=== PATIENT | female | born 1975 | race Hispanic/Latino ===

== ENCOUNTER 2016-04-29 23:24 | Emergency (ER) | payer MEDICARE, MEDICAID ==
[~2016-04-29] VITALS: Ht 160 cm; Wt 90.9 kg
[2016-04-29 23:27] VITALS: BP 130/90; PULSE 87; RESP 18; O2SAT 97
--- NOTE | 2016-04-29 23:49 | ED.REPORT ---
HPI-Chest Pain 40 and Over Date of Service Apr 29, 2016 ED Provider: Aayush Mccracken DO A 41 year old female with a history of smoking and [place] x1 presents to the ED complaining of chest pain onset one hour ago. The pain began when the pt was not doing anything particularly exertional, and radiates into her neck. The pain seems to be exacerbated by movement of her neck. The pt has experienced similar symptoms before while living in [place], and was diagnosed with high cholesterol. Nursing Notes Stated Complaint: CHEST PAIN Chief Complaint: Chest Pain Nursing Notes Reviewed: Yes Allergies: Coded Allergies: No Known Allergies (Verified Allergy, Unknown, 04/30/16) General Time Seen by MD: 23:49 Chief Complaint Chest pain Hx Obtained From: Patient, Spouse Arrived By: Walk-in Sudden in Onset?: Yes Onset Occurred: 1 - 4 hours ago Symptom Duration: Since onset Recent Healthcare: No recent hospitalization, Recent doctor visit Similar Sx Previous: Yes Risk Factors )( CAD Risk Stratification SmokingNo Amphetamine, No Cocaine, No Diabetes mellitus, No Family history, No Hyperlipidemia, No Hypertension, No Known CAD Risk factors reviewed )( TAD Risk Stratification Risk factors reviewed, No risk factors )( PE Risk Stratification No Coagulation Disorder, No Estrogen Medicine / BCP's, No Saige, No Immobilization, No Malignancy, No , No , No Previous DVT, No Previous PE, No Surgery Last 60 Days, No Trauma No risk factors Past Medical History Past Medical History high cholesterol Past Surgical History none reported Smoking History Current Every Day Smoker Social History moved from [place] Other Social History: Good social support, Ambulatory Status Independent Review of Systems Constitutional: Denies: Fever Respiratory: Reports: Shortness of breath, Denies: Non-productive cough Cardiovascular: Reports: Chest pain GI: Denies: Abdominal pain Musculoskeletal: Reports: Neck pain, Denies: Back pain Skin: Denies Rash Complete sys rev & neg: except as marked. Physical Exam Initial Vital Signs Vital Signs (First) Date Time Temp Pulse Resp B/P Pulse Ox O2 Delivery O2 Flow Rate FiO2 04/29/16 23:27 36.4 87 18 130/90 97 Room Air Initial VS: Reviewed General/Constitutional: Awake, Alert Respiratory / Chest: Atraumatic, Breath sounds NL, Breath sounds = bilat, No respiratory distress chest wall tenderness Cardiovascular: Heart rate NL, Regular rhythm, Heart sounds NL Abdomen: Atraumatic, Soft, Non-tender Neck: Atraumatic, Supple, Full range of motion some pain with range of motion of neck Back: Atraumatic, Full range of motion Lower Extremity / Pelvis / MS: Atraumatic, Full range of motion Skin: Atraumatic, Color NL, No rash, Warm, Dry Neurologic: Oriented X3, Speech NL, No motor deficits, No sensory deficits Psychiatric: Affect NL, Mood NL Head / Eyes: Atraumatic, Normocephalic, PERRL, EOMI ENT: Atraumatic, Airway patent, Mucous membranes moist Upper Extremity / MS: Atraumatic, Full range of motion Interpretation & Diagnostics Lab Results Interpretation Result Diagram: 04/29/16 2359 04/29/16 2359 Test 04/29/16 23:59 04/30/16 02:54 White Blood Count 9.0th/mm3 (3.8-10.1) Red Blood Count 4.66mil/mm3 (3.90-5.20) Hemoglobin 13.9g/dL (12.0-15.6) Hematocrit 41.8% (35.0-46.0) Mean Corpuscular Volume 89.7fL (81-100) Mean Corpuscular Hemoglobin 29.8pg (27.0-35.0) Mean Corpuscular Hemoglobin Concent 33.3% (32.0-37.0) Red Cell Distribution Width 14.1% (12.3-15.4) Platelet Count 250bil/L (150-400) Neutrophils (%) (Auto) 45.1% (40-74) Lymphocytes (%) (Auto) 43.0% (14-46) Monocytes (%) (Auto) 7.7% (4-12) Eosinophils (%) (Auto) 3.2% (0-5) Basophils (%) (Auto) 0.3% (0-3) D-Dimer < 0.5mg/L (<0.50) Sodium Level 138mEq/L (134-144) Potassium Level 4.0mEq/L (3.5-5.2) Chloride Level 99mEq/L (97-108) Carbon Dioxide Level 27mmol/L (18-29) Blood Urea Nitrogen 16mg/dL (6-24) Creatinine 0.62mg/dL (0.57-1.00) Estimat Glomerular Filtration Rate 151mL/min (>59) Glucose Level 115mg/dL (60-99) Calcium Level 9.2mg/dL (8.5-10.1) Magnesium Level 2.0mg/dL (1.6-2.6) Total Bilirubin 0.2mg/dL (0.0-1.2) Aspartate Amino Transf (AST/SGOT) 15U/L (0-50) Alanine Aminotransferase (ALT/SGPT) 18U/L (0-32) Alkaline Phosphatase 75U/L (25-150) Total Protein 7.4g/dL (6.4-8.4) Albumin 4.3g/dL (3.4-5.0) Troponin T 0.010ug/L (0.0-0.011) Pulse Oximetry Interpretation Pulse Oximetry Interpretation: 97% on room air Pulse Oximetry: Pulse Ox normal ECG Interpretation ECG Interpretation: normal sinus rhythm with a rate of [address] segment changes no pathologic Q waves Time: 23:26 Interpreted by: ED physician X-Ray Chest Interpretation Chest Xray Interpretation: no acute findings Interpretation / Wet Read by: Wet read ED physician Re-Eval/Medical Decision Med Decision/Clinical Course 41-year-old female presents with neck and chest pain. The pain seems to emanate from her upper chest towards her neck. At times or when she flexes and extends at the neck this makes the chest pain worse. Palpation of her neck and turning of her neck causes pain in her neck. Palpation of her chest causes pain in her chest. She has symmetric blood pressure both arms. Normal cardiopulmonary examination. Respiratory exam was very benign. Chest x-ray did not show any acute disease. EKG showed sinus rhythm with normal ST segments. No signs of ischemia. First troponin was negative. D-dimer was negative. No evidence of dissection or pneumothorax on the chest x-ray. Her mediastinum was not widened. IV Toradol was given with complete relief of pain. Assessment: Atypical chest and neck pain. Plan: She will get a four-hour troponin. If this is normal then she meets all low risk criteria for this hospital's rapid rule out protocol for the emergency department. I do not feel that she is having an acute coronary syndrome, dissection or pulmonary emboli. I think she has musculoskeletal pain. It is reassuring that with any lifting and palpation of her neck she has reproducible symptoms. If the second troponin is normal she can be safely discharged. We will have close outpatient follow-up either way. I discussed this with her and her are very pleased with her care and disposition. Time of Eval: 02:38 Patient Status: Condition improved Re-Evaluation/Progress Note: Pt rechecked, whose pain has resolved with Toradol. The plan for discharge pending reassuring labs is discussed. The pt understands and agrees with the plan. All questions are addressed at this time. Counseled Regarding: Diagnosis, Lab results, Need for follow-up, When/why to return to ED Discharge & Departure Primary Impression: Chest pain Chest pain type: other chest pain Qualified Code: R07.89 - Other chest pain Disposition: Home Discharge Condition All VS Reviewed: Yes Condition: Stable Patient Instructions: Chest Pain (ED) Additional Instructions: The cause of the pain is uncertain. Your chest x-ray looked normal to me. Your EKG did not show evidence of a heart attack or acute ischemia. 2 troponins were negative. Your blood clot blood test was normal. Anti- inflammatories seem to help the pain. I recommend that you take Motrin as directed for pain. I would like you to call your doctor first thing in the morning for further evaluation. You may need to have a stress test if the symptoms return. If he do have any further chest pain then come back to the emergency department. Referrals: Jennifer Seth DO (PCP) [facility] [place] Attestation Portions of this note were transcribed by Charlie Rudolph. I, Dr. Mccracken personally performed the history, physical exam and medical decision-making; I reviewed and confirmed the accuracy of the information in the transcribed note. Signed by: Harrison Edouard, 04/30/2016 and 0248. copies to: Jennifer Seth DO; [facility] Aayush Mccracken DO Apr 29, 2016 23:49 CHARLIE RUDOLPH Apr 29, 2016 23:59
[2016-04-30 00:14] LABS: BASOPHILS % (AUTO) 0.3 % (0-3); EOSINOPHILS % (AUTO) 3.2 % (0-5); MONOCYTES % (AUTO) 7.7 % (4-12); Mean Corpuscular Hemoglobin 29.8 pg (27.0-35.0); Mean Corpuscular Volume 89.7 fL (81-100); NEUTROPHILS % (AUTO) 45.1 % (40-74); Platelet Count 250 bil/L (150-400)
[2016-04-30 00:20] VITALS: BP 116/74; PULSE 80; RESP 17; O2SAT 95
[2016-04-30 00:36] LABS: TROPONIN T 0.01 ug/L (0.0-0.011)
[2016-04-30 01:39] VITALS: BP 104/65; PULSE 79; RESP 20; O2SAT 95
[2016-04-30 04:05] VITALS: BP 115/69; PULSE 85; RESP 15; O2SAT 94
[2016-04-30 04:06] VITALS: BP 115/69; PULSE 85; RESP 15; O2SAT 94
--- NOTE | 2016-05-05 15:25 | DRSVH ---
CORRECTED PATIENT NAME AND MRN ON 05/05/16 PROCEDURE: X-RAY CHEST ONE VIEW, PORTABLE ([id number]) INDICATIONS: chest pain TECHNIQUE: One view of the chest was acquired. COMPARISON: None. FINDINGS: Surgical changes and devices: None. Lungs and pleura: No pleural effusions or pneumothorax. Lungs are clear, and interstitium is promin ent. Mediastinum: Mediastinal contours appear normal. Heart size is normal. Bones and chest wall: No suspicious bony lesions. Overlying soft tissues appear unremarkable. IMPRESSION: Prominent interstitium and mild edema or atypical pneumonia cannot be excluded. Recommen d clinical correlation. Dictated by: Denilson Bernardo RR Interpreted: Angus Christopher MD on 04/30/2016 at 10:04 Transcribed by: BETH on 04/30/2016 at 10:05 Approved by: Angus Christopher M.D. on 04/30/2016 at 16:21
== END 2016-04-30 04:11 | disposition home or self-care (01) ==
LOC: EDBD → EDUNIT# 23:24 → SED 23:24
DX: R07.89 Other chest pain (principal); I25.2 Old myocardial infarction; F17.200 Nicotine dependence, unspecified, uncomplicated

== ENCOUNTER 2016-04-30 16:35 | Emergency (ER) | payer MEDICARE, MEDICAID ==
[~2016-04-30] VITALS: Ht 160 cm; Wt 86.4 kg
[2016-04-30 16:41] VITALS: BP 145/101; PULSE 93; RESP 16; O2SAT 93
--- NOTE | 2016-04-30 17:07 | ED.REPORT ---
HPI-General Illness Date of Service Apr 30, 2016 ED Provider: Efra Orr DO The patient is a 41 year old female with history of high cholesterol and tobacco use who presents to the emergency department complaining of a headache and left-sided facial numbness that she noticed at 0900. She also reports some tingling in her left arm and left-sided weakness. She was seen last night for chest pain and had a completely negative workup which included EKG, chest x-ray , and labs. She was discharged this morning around 0400. She denies nausea, vomiting, fever, chills, recurrent chest pain, cough, or shortness of breath. Records from previous visit show record of high cholesterol and an PA. She denies history of either of these. Nursing Notes Stated Complaint: L ARM TINGLING,L HEAD & NECK NUMBNESS Chief Complaint: Neuro Symptoms/ Deficits Nursing Notes Reviewed: Yes Allergies: Coded Allergies: No Known Allergies (Verified Allergy, Unknown, 04/30/16) General Time Seen by MD: 17:06 Chief Complaint Other (numbness and tingling) Hx Obtained From: Patient, Other family... Sudden in Onset?: Yes Onset Occurred: 5 - 8 hours ago Symptom Duration: Since onset Location: : Head Quality: Painful Severity: Current: Mild Severity: Maximum: Moderate Recent Healthcare: No recent hospitalization, Recent doctor visit Similar Sx Previous: No Past Medical History Past Medical History "Plugged coronary vein" Past Surgical History none reported Family History Noncontributory Smoking History Current Every Day Smoker Social History Recently moved from [place] Other Social History: Good social support, , Local resident Ambulatory Status Independent Review of Systems Full Review of Systems Constitutional: Denies: Chills, Fever Respiratory: Denies: Non-productive cough, Shortness of breath Cardiovascular: Denies: Chest pain GI: Denies: Nausea, Vomiting Neurologic: Reports: Headache, Numbness (left side of face) Complete sys rev & neg: except as marked. Physical Exam Vital Signs Initial VS: Reviewed Head / Eyes: Atraumatic, Normocephalic, PERRL ENT: Mucous membranes moist, Conjunctiva normal, No scleral icterus Respiratory: Breath sounds normal, Clear to auscultation, No respiratory distress Cardiovascular: Regular rate & rhythm, Heart sounds normal, Intact distal pulses Abdomen / GI: Soft, Non-tender, No guarding, No rebound, No distention Lymphatic: No lymphadenopathy Extremities: Vascular intact, Neuro intact, No swelling, No tenderness Skin: Warm, Dry, No cyanosis Psychiatric: Mood/affect normal, Behavior normal, Normal thought content General/Constitutional: Awake, Alert, No acute distress, Cooperative Neck: Atraumatic, Supple, No meningismus, Full range of motion, No adenopathy, No swelling, Non-tender, No midline vertebral tend No nuchal rigidity. Neurologic: Oriented X3, Speech NL, No motor deficits, CN II - XII intact, Cerebellar NL, Memory NL Decreased sensation to her neck bilaterally. Negative bilateral spurling test. 5/5 strength to bilateral lower extremities. 5/5 strength to bilateral upper extremities. Decreased sensation to her entire left side: lower extremity, upper extremity, and face. No facial droop. NIHS: 0. Interpretation & Diagnostics Lab Results Interpretation Test 04/30/16 18:14 White Blood Count 9.5th/mm3 (3.8-10.1) Red Blood Count 4.49mil/mm3 (3.90-5.20) Hemoglobin 13.4g/dL (12.0-15.6) Hematocrit 40.5% (35.0-46.0) Mean Corpuscular Volume 90.2fL (81-100) Mean Corpuscular Hemoglobin 29.8pg (27.0-35.0) Mean Corpuscular Hemoglobin Concent 33.1% (32.0-37.0) Red Cell Distribution Width 14.2% (12.3-15.4) Platelet Count 228bil/L (150-400) Neutrophils (%) (Auto) 58.6% (40-74) Lymphocytes (%) (Auto) 31.3% (14-46) Monocytes (%) (Auto) 5.9% (4-12) Eosinophils (%) (Auto) 3.5% (0-5) Basophils (%) (Auto) 0.3% (0-3) Prothrombin Time 10.1sec (8.1-12.5) Prothromb Time International Ratio 0.95ratio Sodium Level 141mEq/L (134-144) Potassium Level 4.2mEq/L (3.5-5.2) Chloride Level 103mEq/L (97-108) Carbon Dioxide Level 26mmol/L (18-29) Blood Urea Nitrogen 16mg/dL (6-24) Creatinine 0.58mg/dL (0.57-1.00) Estimat Glomerular Filtration Rate 163mL/min (>59) Glucose Level 96mg/dL (60-99) Calcium Level 9.2mg/dL (8.5-10.1) Total Bilirubin 0.2mg/dL (0.0-1.2) Aspartate Amino Transf (AST/SGOT) 17U/L (0-50) Alanine Aminotransferase (ALT/SGPT) 17U/L (0-32) Alkaline Phosphatase 66U/L (25-150) Troponin T < 0.010ug/L (0.0-0.011) Total Protein 6.7g/dL (6.4-8.4) Albumin 4.0g/dL (3.4-5.0) Hold Calvo Top Tube Received (Received) ECG Interpretation ECG Interpretation: Sinus rhythm with a rate of [address] changes Time: 06:14 CT Head Interpretation IMPRESSION: No abnormalities found intracranially. No evidence for mass, edema, neural, or old stroke is seen. Dictated by: Jake Garza M.D. on 04/30/2016 at 18:31 Study: Head CT no contrast Interpretation / Wet Read by: Interpret - Radiologist Re-Eval/Medical Decision Med Decision/Clinical Course 41-year-old female at low heart risk presents with left-sided numbness. NIH stroke scale 0. Patient appeared very anxious and was treated with Ativan in addition to a cardiac workup and head CT. After Ativan was given symptoms appeared to resolve. Head CT was normal and ACS was ruled out. Patient was feeling much better and was agreeable to go home and follow up with her PCP Source of Hx: Old records, Family Time of Eval: 19:20 Re-Evaluation/Progress Note: Rechecked the patient. She is feeling better. Discussed results, diagnosis, and plan for discharge. All questions were addressed. Counseled Regarding: Diagnosis, Lab results, Need for follow-up, When/why to return to ED Discharge & Departure Primary Impression: Paresthesia Additional Impression: Anxiety Disposition: Home Discharge Condition All VS Reviewed: Yes Condition: Stable Additional Instructions: Thank you for entrusting us with your care today. Your EKG, labs, and head CT today are reassuring. There is no evidence of a stroke or heart attack. Your symptoms may be related to anxiety. You should followup with your regular doctor next week for further evaluation and management of these symptoms. Please return to the emergency department for any new or concerning symptoms. Swapna por confiarnos pendleton cuidado hoy. P[place]leton EKG, los laboratorios y la TC de jerrell son hoy tranquilizadores. No hay evidencia de un accidente cerebrovascular o ataque al corazn. Ana sntomas pueden estar relacionados con la ansiedad. Debe hacer un seguimiento con pendleton mdico de cabecera la prxima semana para kim mayor evaluacin y manejo de estos sntomas. Por favor regrese al departamento de emergencias para cualquier nuevo o relacionado con los s ntomas. Referrals: Jennifer Seth Attestation Portions of this note were transcribed by Diamante Echeverria. I, Dr. Orr personally performed the history, physical exam and medical decision-making; I reviewed and confirmed the accuracy of the information in the transcribed note. Signed by: Harrison Dueñas, 04/30/2016 at 1930. copies to: Jennifer Seth Gary R DO Apr 30, 2016 17:07 Diamante Echeverria Apr 30, 2016 17:17 Signed by: Harrison Dueñas, 04/30/2016 at 1930. copies to: Jennifer Seth Gary R DO Apr 30, 2016 17:07 Diamante Echeverria Apr 30, 2016 17:17
[2016-04-30] MEDS ORDERED: LORazepam 0.5 mg Tablet PO ONE (18:05)
[2016-04-30 18:24] LABS: BASOPHILS % (AUTO) 0.3 % (0-3); EOSINOPHILS % (AUTO) 3.5 % (0-5); MONOCYTES % (AUTO) 5.9 % (4-12); Mean Corpuscular Hemoglobin 29.8 pg (27.0-35.0); Mean Corpuscular Volume 90.2 fL (81-100); NEUTROPHILS % (AUTO) 58.6 % (40-74); Platelet Count 228 bil/L (150-400)
--- NOTE | 2016-04-30 18:35 | DRSVH ---
PROCEDURE: CT BRAIN WITHOUT CONTRAST ([id number]) INDICATIONS: Stroke LEFT ARM NUMB TECHNIQUE: Noncontrast 4.5 mm thick angled axial sections acquired from the foramen magnum to the vertex, with c oronal reformats. COMPARISON: None. FINDINGS: Image quality: Excellent. CSF spaces: Basal cisterns are patent. No extra-axial fluid collections. Ventricles are normal in size and shape. Brain: No midline shift. No intracranial masses or hemorrhage. Ely-white matter interface is norm al. Skull and face: Calvarium and visualized facial bones are intact, without suspicious lesions. Sinuses: Visualized sinuses and mastoids are clear. IMPRESSION: No abnormalities found intracranially. No evidence for mass, edema, neural, or old stroke is seen. Dictated by: Jake Garza M.D. on 04/30/2016 at 18:31 Approved by: Jake Garza M.D. on 04/30/2016 at 18:33
[2016-04-30 18:40] LABS: INR 0.95 ratio
[2016-04-30 19:04] LABS: TROPONIN T < 0.010 ug/L (0.0-0.011)
[2016-04-30 20:16] VITALS: BP 136/75; PULSE 79; RESP 16; O2SAT 99
== END 2016-04-30 20:17 | disposition home or self-care (01) ==
LOC: EDBD 16:35 → SED 16:35
DX: R20.2 Paresthesia of skin (principal); F41.9 Anxiety disorder, unspecified; R51 Headache; F17.200 Nicotine dependence, unspecified, uncomplicated